=== PATIENT | female | born 1935 | race Caucasian/White ===

== ENCOUNTER 2019-10-06 13:17 | Outpatient (CLI) | payer OTHER, SELFPAY ==
--- NOTE | ~2019-10-06 | CT_ITS ---
EXAMINATION: CT abdomen pelvis w con DATE: 10/06/2019 15:24 INDICATION: Malignant neoplasm of the endometrium. TECHNIQUE: Computed tomography (CT) of the abdomen and pelvis was performed with 100 mL Omnipaque 350 intravenous contrast. Automated exposure control and iterative reconstruction technique were employe d. The dose-length product was 185.72 mGy-cm. COMPARISON: CT abdomen and pelvis 03/31/2019 FINDINGS: The visualized portions of the lung bases demonstrate mild atelectasis. There is bronchiect asis in right middle lobe and lingula. No pleural effusion. The heart size is normal. No pericardial effusion. There is mild intrahepatic bile duct dilatation, likely secondary to cholecystectomy. The s pleen, pancreas, and adrenal glands are normal. There are cysts in the kidneys measuring up to 4.6 cm on the left. There are no dilated loops of bowel. There are no pathologically enlarged lymph nodes. There is trace pelvic ascites. There is severe lumbar spondylosis. IMPRESSION: 1. No evidence of metastatic disease. Reviewed, dictated and finalized at location A.
[2019-10-06 15:16] LABS: Estimated Glomerular Filt Rate 60
== END 2019-10-06 13:18 | disposition home or self-care (01) ==
PROVIDERS: Visit Provider Radiology Radiation Oncology
DX: C54.1 Malignant neoplasm of endometrium (principal)
CPT/HCPCS: 36415; 74177; Q9967

== ENCOUNTER 2020-03-27 09:01 | Outpatient (CLI) | payer OTHER, SELFPAY ==
--- NOTE | ~2020-03-27 | CT_ITS ---
EXAMINATION: CT abdomen pelvis w con DATE: 03/27/2020 09:38 INDICATION: Malignant neoplasm of the endometrium TECHNIQUE: Computed tomography (CT) of the abdomen and pelvis was performed with 100 cc Omnipaque 350 intravenous contrast. The dose-length product was 250.84 mGy-cm. Automated exposure control and iter ative reconstruction technique were employed. COMPARISON: Comparison to multiple prior studies sequentially, with oldest reviewed study dated 09/11. FINDINGS: There is a new 6 mm lingular nodule, image 1, not present on CT dated 09/11/2018. Heart size normal. No significant pleural or pericardial effusion. Gallbladder is surgically absent with expected prominence of the bile ducts. There are bilateral susan l cysts unchanged. The spleen, pancreas, adrenal glands are unremarkable. Nonobstructive bowel gas pa ttern. There is free fluid in the pelvis. Uterus is surgically absent. There is a urachal remnant of the bladder. Moderate lumbar spondylosis. No free air. No lymphadenopathy. No significant vascular ab normality. IMPRESSION: 1. New 6 mm lingular nodule, not seen on CT dated 09/11/2018. Metastatic disease cannot be excluded. C onsider correlation with CT chest to exclude additional nodules. 2: Small amount of free fluid in the pelvis, nonspecific. Reviewed, dictated and finalized at location B. DCARE CENTER ADMINISTRATOR IMPRESSION: 1. New 6 mm lingular nodule, not seen on CT dated 09/11/2018. Metastatic disease cannot be excluded. Consider correlation with CT chest to exclude additional n odules. 2: Small amount of free fluid in the pelvis, nonspecific.
[2020-03-27 09:34] LABS: Estimated Glomerular Filt Rate > 60
== END 2020-03-27 09:02 | disposition home or self-care (01) ==
PROVIDERS: PCP Internal Medicine; Visit Provider Radiology Radiation Oncology
DX: C54.1 Malignant neoplasm of endometrium (principal); R93.5 Abnormal findings on diagnostic imaging of other abdominal regions, including retroperitoneum
CPT/HCPCS: 74177; Q9967

== ENCOUNTER 2020-04-04 09:49 | Outpatient (CLI) | payer OTHER, SELFPAY ==
--- NOTE | ~2020-04-04 | MR_ITS ---
EXAMINATION: MR brain/brain stem wo con DATE: 04/04/2020 10:34 INDICATION: Memory loss. Aphasia. TECHNIQUE: Magnetic resonance imaging (MRI) of the brain and brainstem was performed without intraven ous contrast. Sequences included sagittal and axial T1-weighted FSE, axial diffusion-weighted FS EPI, axial T2*-weighted GRE, axial T2-weighted FLAIR Propeller, and axial T2-weighted Propeller. Apparent diffusion coefficient (ADC) maps were created. COMPARISON: None. FINDINGS: There is no intracranial hemorrhage, acute infarction, or abnormal intracranial mass lesion . There is an old infarct in left frontal lobe. There are scattered areas of nonspecific increased T2 -weighted signal intensity in the cerebral white matter. The ventricles are normal in size. There is mild mucosal thickening in the ethmoid sinuses. The orbits are normal. The mastoid air cells are norm al. IMPRESSION: 1. 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 2. Moderate nonspecific cerebral white matter disease, which likely represents chronic small vessel i schemic disease. Reviewed, dictated and finalized at location B. RMATION RESOURCE CONSULTANT IMPRESSION: 1. 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 2. Moderate nonspecific cerebral white matter disease, which likely represents chronic small vessel ischemic disease.
== END 2020-04-04 09:50 | disposition home or self-care (01) ==
LOC: ANHIMG 09:50
PROVIDERS: PCP Internal Medicine; Visit Provider Internal Medicine
DX: R41.3 Other amnesia (principal); R47.01 Aphasia; R90.82 White matter disease, unspecified; Z86.73 Personal history of transient ischemic attack (TIA), and cerebral infarction without residual deficits
CPT/HCPCS: 70551

== ENCOUNTER 2020-04-11 09:40 | Outpatient (CLI) | payer OTHER, SELFPAY | END 2020-04-11 09:41 | disposition home or self-care (01) | LOC: ANHAUDIO 09:41 | PROVIDERS: PCP Internal Medicine; Visit Provider Internal Medicine | DX: H91.90 Unspecified hearing loss, unspecified ear (principal) | CPT/HCPCS: 99199 ==

== ENCOUNTER 2020-04-13 12:09 | Outpatient (CLI) | payer OTHER, SELFPAY ==
--- NOTE | ~2020-04-13 | CT_ITS ---
EXAMINATION: CT chest wo con EXAM DATE: 04/13/2020 13:26 INDICATION: Solitary pulmonary nodule. TECHNIQUE: Spiral CT of the chest without contrast. Axial, coronal and sagittal images were reviewe d. Coronal maximum intensity pixel images of chest reviewed. The dose-length product (DLP) for this examination was 64.05 mGy-cm. The exposure was tailored according to patient size (auto mA exposure control), and iterative reconstruction (ASIR) was used as additional dose reduction technique. Roland rison is made to prior examination from 01/18/2019. FINDINGS: There is interval development of a lingular nodule measuring 1.2 cm with slight lobulation but without spiculation. Interval development of 4 mm nodule in the left upper lobe on image #50. Sm all amount of lingular and right middle lobe post infectious residua unchanged compared to prior stud y. There is mild emphysema and hyperinflation. Some small regions of chronic tree-in-bud punctate nod ular opacities, indicating likelihood of chronic or prior endobronchial infectious process. Mild bron chiectasis. There are no pleural or pericardial effusions. Tracheobronchial tree is patent. There is no media stinal, hilar or axillary lymphadenopathy. There is no pneumothorax. Heart normal in size. Ther e is mild coronary arterial calcification, arterial sclerosis. Probable poorly calcified cholelithia sis. There is thoracic spondylosis without osteoblastic or osteolytic lesions identified. IMPRESSION: 1. Two new left lung nodules, largest 1.2 cm, possible metastatic disease or primary lung cancer. Op tions include CT guided lung biopsy, PET/CT. 2. Mild emphysema and hyperinflation. 3. Other chronic findings. Reviewed, dictated and finalized at location G. SCHOOL MANAGER IMPRESSION: 1. Two new left lung nodules, largest 1.2 cm, possible metastatic disease or p rimary lung cancer. Options include CT guided lung biopsy, PET/CT. 2. Mild emphysema and hyperinflation. 3. Other chronic findings.
== END 2020-04-13 12:10 | disposition home or self-care (01) ==
PROVIDERS: PCP Internal Medicine; Visit Provider Radiology Radiation Oncology
DX: R91.1 Solitary pulmonary nodule (principal); J43.9 Emphysema, unspecified; R91.8 Other nonspecific abnormal finding of lung field
CPT/HCPCS: 71250

== ENCOUNTER 2020-04-19 09:07 | Outpatient (CLI) | payer OTHER, SELFPAY ==
--- NOTE | ~2020-04-19 | PE_ITS ---
EXAMINATION: PET skull to mid thigh DATE: 04/19/2020 11:15 INDICATION: Solitary pulmonary nodule, history of endometrial cancer TECHNIQUE: Blood glucose level was 76 mg/dL. 8.88 mCi of 18-fluorodeoxyglucose (18-FDG) was administe red i.v. Low dose computed tomography (CT) images were acquired from the base of the brain to the pro ximal thighs for attenuation correction and anatomic localization. Positron emission tomography (PET) images were acquired in the same distribution beginning 57 minutes after injection. The dose-length product (DLP) was 318.37 mGy-cm. COMPARISON: 04/13/2020, 01/18/2019 FINDINGS: Head/neck: No abnormal FDG uptake is identified. FDG uptake in the oral cavity and vocal cords is lik zayda physiologic. Chest: There is a 1.3 x 1.0 cm left upper lobe nodule with abnormal FDG uptake and SUV max of 6.5. A 4 mm nodule in the medial aspect of the left upper lobe is unchanged in size and without definite FDG uptake. There is mild dependent atelectasis. No pleural effusion or pneumothorax is identified. No p athologically enlarged thoracic lymph nodes are identified. The heart size is normal. Abdomen/pelvis/proximal thighs: No abnormal FDG uptake is identified. Physiologic FDG activity is pre sent in the bowel and urinary tract. The liver, spleen, pancreas, and adrenal glands are normal. The gallbladder is surgically absent. There is mild enlargement of the common bile duct and central intra hepatic ducts which is likely due to post cholecystectomy state. Cysts of the kidneys measure up to 4 .4 cm on the left. There is no free intraperitoneal gas or evidence of bowel obstruction. There is ca lcified atherosclerosis of the aorta and many of the other arteries. No pathologically enlarged abdom inal or pelvic lymph nodes are identified. There are changes of hysterectomy. Musculoskeletal: No abnormal FDG uptake is identified. There is severe cervical spondylosis at C5-6. Mild lumbar spondylosis is noted. IMPRESSION: 1. Left upper lobe nodule with abnormal FDG uptake, consistent with metastatic disease versus primary bronchogenic carcinoma. Consider CT-guided biopsy for further evaluation. 2. Smaller 4 mm left upper lobe nodule does not demonstrate FDG uptake although this could be due to its small size and the nodule remains suspicious. Attention on follow-up examinations is recommended. Reviewed, dictated and finalized at location A. TICAL NURSING FACULTY IMPRESSION: 1. Left upper lobe nodule with abnormal FDG uptake, consistent with metastatic disease versus primary bronchogenic carcinoma. Consider CT-guided biopsy for fu rther evaluation. 2. Smaller 4 mm left upper lobe nodule does not demonstrate FDG uptake although this could be due to its small size and the nodule remains suspicious. Attenti on on follow-up examinations is recommended.
[2020-04-19 09:48] LABS: Glucose Point of Care 76 (65-105)
== END 2020-04-19 09:08 | disposition home or self-care (01) ==
LOC: ANHIMG 09:10
PROVIDERS: PCP Internal Medicine; Visit Provider Radiology Radiation Oncology
DX: C54.1 Malignant neoplasm of endometrium (principal); R91.1 Solitary pulmonary nodule; R91.8 Other nonspecific abnormal finding of lung field
CPT/HCPCS: 78815; A9552

== ENCOUNTER 2020-05-18 11:05 | Outpatient (NON) | payer OTHER, SELFPAY ==
[2020-05-18 21:44] LABS: SARS-CoV-2 RNA PCR Negative
== END 2020-05-18 11:06 ==
PROVIDERS: PCP Internal Medicine; Visit Provider Radiology Radiation Oncology
DX: R43.2 Parageusia (principal); Z20.822 Contact with and (suspected) exposure to COVID-19
CPT/HCPCS: C9803; U0003; U0005

== ENCOUNTER 2020-09-11 13:34 | Outpatient (CLI) | payer OTHER, SELFPAY ==
--- NOTE | ~2020-09-11 | CT_ITS ---
EXAMINATION: CT chest high resolution w con EXAM DATE: 09/11/2020 14:31 INDICATION: C34.12 - Malignant neoplasm of upper lobe, left bronchus or lung. TECHNIQUE: Spiral CT of the chest following intravenous injection of 75 mL Omnipaque 350. Axial, cor onal and sagittal images of the chest were reviewed. Coronal maximum intensity pixel images of chest reviewed. The dose-length product (DLP) for this examination was 113.69 mGy-cm. The exposure was t ailored according to patient size (auto mA exposure control), and iterative reconstruction (ASIR) was used as additional dose reduction technique. Comparison is made to prior examination from 04/13/2020 . Correlation was made with PET/CT 04/19/2020. FINDINGS: Previously described 1.2 cm pleural-based left midlung zone lateral nodule has decreased i n size, now measuring 7 mm in diameter (axial image 63). This nodule didn't demonstrate increased FDG activity. Previously described left upper lobe 4 mm nodule has increased in size, now measures 9 mm in diameter (axial image 48). These are suspicious for Interval development of some lingular scarring or atelectasis. Persistent right middle lobe atelectasis. Interval development of opacity in the pos terior sulcus of the left lower lobe most likely atelectasis. Mild bronchiectasis. There are no pleural or pericardial effusions. Tracheobronchial tree is patent. There is no media stinal, hilar or axillary lymphadenopathy. There is no pneumothorax. Heart normal in size. Ther e is mild to moderate coronary arterial calcification, arterial sclerosis. There is thoracic spondyl osis without osteoblastic or osteolytic lesions identified. IMPRESSION: 1. Interval decrease in size of previously identified larger left midlung pleural-based nodule. 2. Interval increase in size of the other newly developed left upper lobe nodule. 3. Mild emphysema and hyperinflation. 4. Other chronic findings. Reviewed, dictated and finalized at location A. IMPRESSION: 1. Interval decrease in size of previously identified larger left midlung pleu ral-based nodule. 2. Interval increase in size of the other newly developed left upper lobe nodu le. 3. Mild emphysema and hyperinflation. 4. Other chronic findings.
[2020-09-11 14:17] LABS: Estimated Glomerular Filt Rate > 60
== END 2020-09-11 13:35 | disposition home or self-care (01) ==
PROVIDERS: PCP Internal Medicine; Visit Provider Radiology Radiation Oncology
DX: C34.12 Malignant neoplasm of upper lobe, left bronchus or lung (principal); R91.8 Other nonspecific abnormal finding of lung field; J43.9 Emphysema, unspecified
CPT/HCPCS: 71260; Q9967

== ENCOUNTER 2020-10-05 10:24 | Outpatient (CLI) | payer OTHER, SELFPAY ==
--- NOTE | ~2020-10-05 | PE_ITS ---
EXAMINATION: PET skull to mid thigh DATE: 10/05/2020 14:25 INDICATION: Malignant neoplasm of upper lobe, left bronchus or lung. TECHNIQUE: Blood glucose level was 98 mg/dL. 11.844 mCi of 18-fluorodeoxyglucose (18-FDG) was adminis tered i.v. Low dose computed tomography (CT) images were acquired from the base of the brain to the p roximal thighs for attenuation correction and anatomic localization. Automated exposure control was e mployed. Dose-length product (DLP) was 327 mGy-cm. Positron emission tomography (PET) images were acq uired in the same distribution. COMPARISON: Chest CT 09/11/2020, 04/13/20, PET CT 04/19/2020 FINDINGS: Head/neck: There are no pathologically enlarged lymph nodes. Chest: There is mild scarring at the lung apices. A calcified right lung nodule and calcified right h ilar lymph nodes are consistent with old granulomatous disease. There is mild atelectasis and scarrin g in the lungs. There are chronic centrilobular nodules in the inferior lungs, increased activity, co nsistent with chronic infection. There is a 6 mm nodule in lingula with maximum SUV of 1.8, decreased from 12 mm on 04/13/20. There is a 10 mm nodule in anterior segment left upper lobe with maximum SUV of 6.6, increased from 5 mm on 04/13/20. There is a 7 mm nodule in right middle lobe without increas ed activity, increased from 4 mm on 04/13/20. No pleural effusion. The heart size is normal. There ar e coronary artery calcifications. There are calcifications of aortic valve. No pericardial effusion. Abdomen/pelvis/proximal thighs: The liver, spleen, pancreas, adrenal glands are normal. The gallbladd er is absent. Right kidney is normal. There are cysts in left kidney measuring up to 4.3 cm. There ar e no dilated loops of bowel. There is trace ascites. There are no pathologically enlarged lymph nodes . There are insufficiency fractures of right superior and inferior pubic rami, right parasymphyseal p ubis, and right sacral ala. IMPRESSION: 1. Improved pulmonary nodule in lingula status post radiation therapy. Worsened nodules in left upper lobe and right middle lobe. These findings are suspicious for metastatic disease. Reviewed, dictated and finalized at location A. IMPRESSION: 1. Improved pulmonary nodule in lingula status post radiation therapy. Worsened nodules in left upper lobe and right middle lobe. These findings are suspiciou s for metastatic disease.
[2020-10-05 12:16] LABS: Glucose Point of Care 90 mg/dl (65-105)
== END 2020-10-05 10:25 | disposition home or self-care (01) ==
PROVIDERS: PCP Internal Medicine; Visit Provider Radiology Radiation Oncology
DX: Z03.89 Encounter for observation for other suspected diseases and conditions ruled out (principal); C34.12 Malignant neoplasm of upper lobe, left bronchus or lung; Z51.81 Encounter for therapeutic drug level monitoring; Z79.899 Other long term (current) drug therapy
CPT/HCPCS: 78815; 82948; A9552

== ENCOUNTER 2020-10-17 12:55 | Outpatient (CLI) | payer OTHER, SELFPAY ==
[2020-10-17 13:39] LABS: Basophils Absolute Auto 0.1 K/mm3 (0.0-0.1); Basophils Percent Auto 0.9 % (0.2-1.2); Eosinophils Absolute Auto 0.1 K/mm3 (0-0.3); Eosinophils Percent Auto 1.4 % (0-4.4); Hemoglobin 11.3 g/dL (12.0-15.0); Immature Granulocyte Absolute 0.01 K/mm3 (0.00-0.031); Immature Granulocyte Percent A 0.2 % (0-0.5); Lymphocytes Absolute Auto 0.66 K/mm3 (0.9-3.2); Lymphocytes Percent Auto 10.2 % (18.3-44.2); Mean Corpuscular HGB Conc 30.5 g/dl (32-36); Mean Corpuscular Hemoglobin 26.7 pg (26-34); Mean Corpuscular Volume 87.5 fl (80-100); Mean Platelet Volume 8.5 fl (7.4-10.4); Monocytes Absolute Auto 0.5 K/mm3 (0.1-0.6); Monocytes Percent Auto 8.1 % (2.6-8.5); Neutrophils Absolute Auto 5.1 K/mm3 (1.3-6.7); Neutrophils Percent Auto 79.2 % (45.5-73.1); Platelet Count Result 352 k/mm3 (150-375); Red Blood Count 4.23 M/mm3 (4.2-5.4); Red Cell Distribution Width 13.6 % (11.5-14.5); White Blood Count 6.5 K/mm3 (4.5-10.0)
[2020-10-17 17:34] LABS: Alanine Aminotransferase 10 U/L (4-35); Albumin Level 4.1 g/dL (3.5-5.1); Alkaline Phosphatase 61 U/L (38-126); Anion Gap 11 mmol/L (8-16); Aspartate Amino Transferase 23 U/L (14-36); Bilirubin,Total 0.2 mg/dL (0.2-1.3); Blood Urea Nitrogen 15 mg/dL (7-17); Calcium 10.8 mg/dL (8.4-10.2); Carbon Dioxide 22 mmol/L (22-30); Chloride 105 mmol/L (98-107); Estimated Glomerular Filt Rate > 60; Glucose 78 mg/dL (65-105); Potassium 4.1 mmol/L (3.4-5.0); Sodium 138 mmol/L (137-145)
[2020-10-21 04:12] LABS: CA-125 65 U/mL (<35)
== END 2020-10-17 12:56 | disposition home or self-care (01) ==
LOC: ANHLAB 13:02
PROVIDERS: PCP Internal Medicine; Visit Provider Internal Medicine Hematology & Oncology
DX: C54.1 Malignant neoplasm of endometrium (principal)
CPT/HCPCS: 36415; 80053; 85025; 86304

== ENCOUNTER 2020-10-20 09:58 | Outpatient (NON) | payer OTHER, SELFPAY | END 2020-10-20 09:59 | disposition home or self-care (01) | PROVIDERS: PCP Internal Medicine; Visit Provider Internal Medicine Hematology & Oncology | DX: C54.1 Malignant neoplasm of endometrium (principal) | CPT/HCPCS: 88342; 88365 ==

== ENCOUNTER 2020-12-25 13:50 | Outpatient (CLI) | payer OTHER, SELFPAY ==
[2020-12-25 14:20] LABS: Basophils Absolute Auto 0.1 K/mm3 (0.0-0.1); Basophils Percent Auto 1.3 % (0.2-1.2); Eosinophils Absolute Auto 0.4 K/mm3 (0-0.3); Hematocrit 36.4 % (37.0-47.0); Immature Granulocyte Absolute 0.02 K/mm3 (0.00-0.031); Immature Granulocyte Percent A 0.4 % (0-0.5); Immature Platelet Fraction Pct 1.8 % (0.9-11.2); Lymphocytes Absolute Auto 0.34 K/mm3 (0.9-3.2); Lymphocytes Percent Auto 6.3 % (18.3-44.2); Mean Corpuscular HGB Conc 30.2 g/dl (32-36); Mean Corpuscular Hemoglobin 27.2 pg (26-34); Mean Corpuscular Volume 90.1 fl (80-100); Mean Platelet Volume 9.9 fl (7.4-10.4); Monocytes Absolute Auto 0.6 K/mm3 (0.1-0.6); Monocytes Percent Auto 10.7 % (2.6-8.5); Neutrophils Percent Auto 74.3 % (45.5-73.1); Platelet Count Result 254 k/mm3 (150-375); Red Blood Count 4.04 M/mm3 (4.2-5.4); Red Cell Distribution Width 14.5 % (11.5-14.5); White Blood Count 5.4 K/mm3 (4.5-10.0)
[2020-12-25 14:37] LABS: Blood Urea Nitrogen 16 mg/dL (8-26); Carbon Dioxide 21 mmol/L (22-30); Chloride 102 mmol/L (98-109); Estimated Glomerular Filt Rate 53; Glucose 80 mg/dL (70-105); Potassium 3.8 mmol/L (3.5-4.9); Sodium 136 mmol/L (138-146)
[2020-12-25 17:41] LABS: Alanine Aminotransferase 11 U/L (4-35); Albumin Level 3.9 g/dL (3.5-5.1); Alkaline Phosphatase 55 U/L (38-126); Anion Gap 9 mmol/L (8-16); Aspartate Amino Transferase 23 U/L (14-36); Bilirubin,Total 0.5 mg/dL (0.2-1.3); Blood Urea Nitrogen 18 mg/dL (7-17); Calcium 10.4 mg/dL (8.4-10.2); Carbon Dioxide 22 mmol/L (22-30); Chloride 104 mmol/L (98-107); Estimated Glomerular Filt Rate 60; Glucose 83 mg/dL (65-110); Sodium 135 mmol/L (137-145)
[2020-12-27 02:29] LABS: CA-125 45 U/mL (<35)
== END 2020-12-25 13:51 | disposition home or self-care (01) ==
LOC: ANHLAB 13:54
PROVIDERS: PCP Internal Medicine; Visit Provider Internal Medicine Hematology & Oncology
DX: C54.1 Malignant neoplasm of endometrium (principal)
CPT/HCPCS: 36415; 80048; 80053; 85025; 85055; 86304

== ENCOUNTER 2021-03-30 13:12 | Inpatient (IN) | payer OTHER, SELFPAY ==
--- NOTE | 2021-03-30 14:56 | PM.IMHP ---
H&P: HPI History of Present Illness Date/Time: 03/30/21 14:56 this is a 85-year-old female who presented to [facility] after a mechanical fall. Patient sustained a subdural hematoma and a T12 compression fracture. Upon discharge it was recommended that the patient Eliquis stay on until she follows up with a neurosurgeon she was also placed on Keppra for a short period of time for seizure prevention. Patient does have a history of dementia and a poor historian all information obtained from medical records or her in order. Patient admitted in swing bed for rehabilitation due to decreased balance decreased mobility in severe limited function endurant and/or mobility. <BUD Mccain - Last Filed: 03/31/21 13:14> Chief Complaint: weakness <BUD Mccain - Last Filed: 03/31/21 13:14> Review of Systems Review of Systems: ROS unobtainable: Yes unobtainable due to mental status <BUD Mccain - Last Filed: 03/31/21 13:14> [facility] Past Medical History Medical History: Medical History CKD (chronic kidney disease) COPD (chronic obstructive pulmonary disease) CPAP (continuous positive airway pressure) dependence Dementia FH: cholecystectomy GERD (gastroesophageal reflux disease) Hip fracture requiring operative repair r hip 02/14/21 l hip 02/08/2021 Irritable bowel syndrome Lupus <BUD Mccain - Last Filed: 03/31/21 13:14> Surgical History Surgical History: Surgical History H/O abdominal hysterectomy <BUD Mccain - Last Filed: 03/31/21 13:14> Social History Social History: Social History Smoking status: Never smoker Second hand tobacco smoke exposure: Yes Alcohol intake: never Substance use: never Spiritual care concerns: No <BUD Mccain - Last Filed: 03/31/21 13:14> Meds Home Medications and Allergies Home medications: Home Medications Medication Instructions Recorded Confirmed Type acetaminophen 650 mg PO Q4-6H PRN 02/18/19 03/30/21 History cetirizine 10 mg PO DAILY 02/18/19 03/30/21 History fenofibrate nanocrystallized 48 mg PO HS 02/18/19 03/30/21 History lisinopril [Zestril] 40 mg PO DAILY 02/18/19 03/30/21 History omeprazole 40 mg PO BID 02/18/19 03/30/21 History spironolactone 25 mg PO DAILY 02/18/19 03/30/21 History alendronate 70 mg PO WEEKLY 03/30/21 03/30/21 History amlodipine 5 mg PO DAILY 03/30/21 03/30/21 History calcium carbonate 200 mg PO QID PRN 03/30/21 03/30/21 History duloxetine 30 mg PO BID 03/30/21 03/30/21 History ferrous sulfate 325 mg PO DAILY 03/30/21 03/30/21 History hydroxychloroquine [Plaquenil] 200 mg PO DAILY 03/30/21 03/30/21 History hydroxyzine HCl 10 mg PO BID PRN 03/30/21 03/30/21 History levetiracetam 500 mg PO BID 03/30/21 03/30/21 History loratadine 10 mg PO DAILY 03/30/21 03/30/21 History metoprolol tartrate 12.5 mg PO BID 03/30/21 03/30/21 History metronidazole 1 applic TOPICAL BID 03/30/21 03/30/21 History polyethylene glycol 3350 [Miralax] 17 g PO DAILY 03/30/21 03/30/21 History potassium phosphate, monobasic 500 mg PO TIDWM 03/30/21 03/30/21 History ramelteon 8 mg PO HS 03/30/21 03/30/21 History sodium chloride 1 g PO BIDWM 03/30/21 03/30/21 History sulfamethoxazole-trimethoprim 1 tablet PO Q12H 03/30/21 03/30/21 History [Bactrim DS] tamoxifen 20 mg PO DAILY 03/30/21 03/30/21 History trazodone 50 mg PO HS 03/30/21 03/30/21 History BUD Butler - Last Filed: 03/31/21 13:14> Allergies/Adverse reactions: Allergies Allergy/AdvReac Type Severity Reaction Status Date / Time levofloxacin Allergy Severe RASH, N/V Verified 11/24/20 10:45 albuterol Allergy Intermediate n/a Verified 11/24/20 10:45 <BUD Mccain - Last Filed: 03/31/21 13:14> Exam Narrative:
[2021-03-30 16:00] VITALS: BP 146/85; PULSE 73; RESP 20; TEMP 36.6; O2SAT 100
[2021-03-30 16:37] VITALS: BMI 18.0
[2021-03-30] MEDS: POTASSIUM/PHOSPHORUS/SODIUM 1.5 GM PACKET 1 PACKET PO (17:25)
[2021-03-30 17:28] VITALS: PULSE 73
[2021-03-30] MEDS: DULoxetine HCL 30 MG CAPSULE.DR PO (17:28)
[2021-03-30] MEDS: METOPROLOL TARTRATE 12.5 MG TABLET PO (17:28)
[2021-03-30] MEDS: hydrOXYzine HCL 12.5 MG TABLET PO (18:03)
--- NOTE | 2021-03-30 19:00 | PC.NURSE ---
Pt introduction took place. Pt whiteboard updated. Call light within reach.
[2021-03-30] MEDS: PANTOPRAZOLE 40 MG TABLET PO (21:15)
[2021-03-30] MEDS: levETIRAcetam 500 MG TABLET PO (21:15)
[2021-03-30] MEDS: traZODone HCL 50 MG TABLET PO (21:16)
[2021-03-30] MEDS: ZOLPIDEM TARTRATE (*CRX) 5 MG TABLET PO (21:16)
--- NOTE | 2021-03-30 22:29 | PM.IMHP ---
H&P: HPI History of Present Illness Date/Time: 03/30/21 22:29 Chief Complaint: 85-year-old female with a history of dementia, hypertension, HFpEF, COPD, [place] on CPAP, CKD, lupus, rheumatoid arthritis, endometrial cancer with Mets to the lung status post RT, recurrent falls with bilateral hip fractures status post repair of the left on 02/08/2021 and of the right on 02/14/2021, chief T12 compression fracture was transferred to [facility] on 03/24/2021 with -- subdural hematoma -- right frontal and periorbital hematoma -- T12 compression fracture The patient had a fall and sustained bilateral hip fractures which were repaired on 02/08/2021 and 02/14/2021. Postoperatively the patient was started on Eliquis for DVT prophylaxis. The patient was monitored for the subdural hematoma. The patient was also started on Keppra. During the hospitalization the patient developed -- E coli urinary tract infection/ E coli bacteremia The patient is transferred to the swing bed service is here. Review of Systems Review of Systems: The patient has dementia and is unable to answer questions appropriately. [facility] Past Medical History Medical History CKD (chronic kidney disease) COPD (chronic obstructive pulmonary disease) CPAP (continuous positive airway pressure) dependence Dementia FH: cholecystectomy GERD (gastroesophageal reflux disease) Hip fracture requiring operative repair r hip 02/14/21 l hip 02/08/2021 Irritable bowel syndrome Lupus Surgical History Surgical History H/O abdominal hysterectomy Social History Social History Smoking status: Never smoker Second hand tobacco smoke exposure: Yes Alcohol intake: never Substance use: never Spiritual care concerns: No Meds Home Medications and Allergies Home Medications Medication Instructions Recorded Confirmed Type acetaminophen 650 mg PO Q4-6H PRN 02/18/19 03/30/21 History cetirizine 10 mg PO DAILY 02/18/19 03/30/21 History fenofibrate nanocrystallized 48 mg PO HS 02/18/19 03/30/21 History lisinopril [Zestril] 40 mg PO DAILY 02/18/19 03/30/21 History omeprazole 40 mg PO BID 02/18/19 03/30/21 History spironolactone 25 mg PO DAILY 02/18/19 03/30/21 History alendronate 70 mg PO WEEKLY 03/30/21 03/30/21 History amlodipine 5 mg PO DAILY 03/30/21 03/30/21 History calcium carbonate 200 mg PO QID PRN 03/30/21 03/30/21 History duloxetine 30 mg PO BID 03/30/21 03/30/21 History ferrous sulfate 325 mg PO DAILY 03/30/21 03/30/21 History hydroxychloroquine [Plaquenil] 200 mg PO DAILY 03/30/21 03/30/21 History hydroxyzine HCl 10 mg PO BID PRN 03/30/21 03/30/21 History levetiracetam 500 mg PO BID 03/30/21 03/30/21 History loratadine 10 mg PO DAILY 03/30/21 03/30/21 History metoprolol tartrate 12.5 mg PO BID 03/30/21 03/30/21 History metronidazole 1 applic TOPICAL BID 03/30/21 03/30/21 History polyethylene glycol 3350 [Miralax] 17 g PO DAILY 03/30/21 03/30/21 History potassium phosphate, monobasic 500 mg PO TIDWM 03/30/21 03/30/21 History ramelteon 8 mg PO HS 03/30/21 03/30/21 History sodium chloride 1 g PO BIDWM 03/30/21 03/30/21 History sulfamethoxazole-trimethoprim 1 tablet PO Q12H 03/30/21 03/30/21 History [Bactrim DS] tamoxifen 20 mg PO DAILY 03/30/21 03/30/21 History trazodone 50 mg PO HS 03/30/21 03/30/21 History Allergies Allergy/AdvReac Type Severity Reaction Status Date / Time levofloxacin Allergy Severe RASH, N/V Verified 11/24/20 10:45 albuterol Allergy Intermediate n/a Verified 11/24/20 10:45 Vital Signs Vital Signs - 24 hr 03/30/21 16:00 03/30/21 17:28 Temperature 36.6 C Pulse Rate 73 73 Respiratory Rate 20 Blood Pressure 146/85 H Pulse Oximetry 100 Exam Const: General: cooperative, no acute distress and ill appearing Nutritional Appearance: cachec
[2021-03-31] VITALS: BP 107/56; PULSE 72; RESP 22; TEMP 36.9; O2SAT 95
--- NOTE | 2021-03-31 02:11 | PC.NURSE ---
Pt rounding completed. Pt tolerated turning with no complaints. Call light is within reach and bed alarm is on.
[2021-03-31 05:34] LABS: Hematocrit 28.2 % (35.0-42.0); Hemoglobin 9.2 g/dL (11.7-13.8); Mean Corpuscular HGB Conc 32.6 g/dL (32.0-36.0); Mean Corpuscular Hemoglobin 30.3 pg (27.0-31.0); Mean Corpuscular Volume 92.8 fL (78.0-102.0); Mean Platelet Volume 8.8 fl (9.2-11.8); Platelet Count Result 375 K/mm3 (150-420); Red Blood Count 3.04 M/mm3 (4.20-5.40); Red Cell Distribution Width 15.9 % (11.6-14.4); White Blood Count 6.2 K/mm3 (4.8-10.8)
[2021-03-31 05:44] LABS: Alanine Aminotransferase 14 U/L (14-59); Albumin Level 2.4 g/dL (3.4-5.0); Alkaline Phosphatase 65 U/L (46-116); Anion Gap 8 mmol/L (8-16); Aspartate Amino Transferase 14 U/L (15-37); Bilirubin,Total 0.3 mg/dL (0.00-1.00); Blood Urea Nitrogen 12 mg/dL (7-18); Carbon Dioxide 24 mmol/L (21-32); Chloride 107 mmol/L (98-108); Estimated CRCL calculation 36 ml/min; Estimated Glomerular Filt Rate > 60; Glucose 86 mg/dL (70-99); Magnesium 1.8 mg/dL (1.8-2.4); Osmolality Calculated 286 mOsm/kg (285-295); Potassium 4.2 mmol/L (3.5-5.1); Sodium 139 mmol/L (136-145); Total Protein 5.4 g/dL (6.4-8.2)
[2021-03-31 08:00] VITALS: BP 135/83; PULSE 76; RESP 17; TEMP 36.2; O2SAT 99
--- NOTE | 2021-03-31 10:26 | STIPEVAL ---
Thank you for referring Gisela Mendiola to [facility].? The patient is scheduled to be seen for therapy? 5-7x/week for 2 weeks. Please review, sign, date and return this plan of care BIGG. I agree with and certify that the following plan of care is medically necessary. Referring Physician Date Admitting Provider: Miguel Chi MD Attending Provider: Miguel Chi MD Referring Provider: CHAD Inpatient Evaluation Start: 03/31/21 10:09 Freq: Status: Active Protocol: Document 03/31/21 09:30 MJB (Rec: 03/31/21 10:25 [id number]) Therapy Assessment Status Assessment Status Assessment Status Evaluation Prior Level of Function Activity Level (Last 3 Months) Occupation retired Activity of Daily Living Ability Independent Indoor/Home Mobility Independent Community Mobility Needs Some Help Stairs Ability Independent Functional Cognition (Planning, Shopping Needs Some Help , Taking Medications) Cooking No Cleaning No Laundry No Shopping No Driving No Home Setting Home Type House Environmental Barriers Stairs, Greater than 4 Living Situation With Spouse Support Available Local Family Support Cargiver Responsibilities Comment patient's and daughter are in the room and assist in providing prior level of function. Patient initially fell and broke her L hip on February 07 resulting in a full L hip replacement. She was transferred to a [facility] center where she had 3 additional falls resulting in partial hip replacement of the R hip and the last fall a brain bleed. Patient would occasionally use a cane but did not use correctly. Mobility Assistive Devices (Used Last 3 Cane Months) Prior Swallow Level Prior Intake Method Oral Prior Diet Regular (Level 7 Diet) Prior Liquid Consistency Thin (Level 0 Diet) Prior Cognition/Communication Prior Cognitive Function Memory Impaired,Orientation Impaired Prior Ability to Handle Finances Dependent Comments Additional Prior Level of Function Patient is a poor historian Comments therefore limited information was
--- NOTE | 2021-03-31 13:20 | PC.NURSE ---
Patient being discharged home. All belongings sent home with patient. Discharge instructions reviewed with patient family member, states understanding. This nurse accompanied patient to front door via wheelchair. Patient left via private vehicle with family member. Umm delivered portable 02 tank before patient discharged and did teaching with patient.
[2021-03-31] MEDS: POTASSIUM/PHOSPHORUS/SODIUM 1.5 GM PACKET 1 PACKET PO (13:52)
[2021-03-31] MEDS: lisinopriL 20 MG TABLET 40 MG PO (13:53)
[2021-03-31] MEDS: amLODIPine BESYLATE 5 MG TABLET PO (13:53)
[2021-03-31] MEDS: DULoxetine HCL 30 MG CAPSULE.DR PO ×2 (13:53→23:20)
[2021-03-31] MEDS: SPIRONOLACTONE 25 MG TABLET PO (13:54)
[2021-03-31] MEDS: levETIRAcetam 500 MG TABLET PO ×2 (13:54→23:00)
[2021-03-31] MEDS: HYDROXYCHLOROQUINE SULFATE 200 MG TABLET PO (13:54)
[2021-03-31 13:55] VITALS: PULSE 88
[2021-03-31] MEDS: METOPROLOL TARTRATE 12.5 MG TABLET PO ×2 (13:55→23:20)
[2021-03-31] MEDS: LORATADINE 10 MG TABLET PO (13:56)
[2021-03-31] MEDS: PANTOPRAZOLE 40 MG TABLET PO ×2 (13:59→23:00)
[2021-03-31] MEDS: FENOFIBRATE NANOCRYSTALLIZED 145 MG TABLET 72.5 MG PO (14:00)
[2021-03-31] MEDS: FERROUS SULFATE 324 MG TABLET PO (14:00)
[2021-03-31] MEDS: TAMOXIFEN CITRATE (*CHEMO) 10 MG TABLET 20 MG PO (14:01)
[2021-03-31 16:00] VITALS: BP 130/76; PULSE 70; RESP 17; TEMP 36.4; O2SAT 96
--- NOTE | 2021-03-31 18:41 | PC.NURSE ---
Pt whiteboard updated. Pt's is in room and both are in pleasant mood.
[2021-03-31] MEDS: hydrOXYzine HCL 12.5 MG TABLET PO (19:52)
[2021-03-31] MEDS: ZOLPIDEM TARTRATE (*CRX) 5 MG TABLET PO (23:00)
[2021-03-31] MEDS: traZODone HCL 50 MG TABLET PO (23:00)
[2021-03-31 23:20] VITALS: PULSE 86
[2021-03-31 23:26] VITALS: BP 129/73; PULSE 86; RESP 17; TEMP 36.8; O2SAT 97
--- NOTE | 2021-04-01 01:09 | PC.NURSE ---
Pt had voided in bed on accident. This senior technical writer along with [employer]. changed the bed linens, gown, and performed perianal care for the pt. Pt tolerated procedure well through her confusion. Bed was then placed in lowest position for pt safety and call light was placed within reach.
--- NOTE | 2021-04-01 01:27 | PC.NURSE ---
Pt currently sleeping on her back with her feet elevated with a pillow. Call light within reach.
--- NOTE | 2021-04-01 02:58 | PC.NURSE ---
Pt had voided while sleeping. Bed linens changed along with pt gown. Pt tolerated intervention well. Pericare provided. A depend was placed on the pt for any incontinence through the night. Bed was placed in lowest position for pt safety and 3 bed rails raised. Call light is within reach.
[2021-04-01 08:00] VITALS: BP 141/70; PULSE 83; RESP 16; TEMP 36.8; O2SAT 97
[2021-04-01] MEDS: FENOFIBRATE NANOCRYSTALLIZED 145 MG TABLET 72.5 MG PO (12:13)
[2021-04-01] MEDS: lisinopriL 20 MG TABLET 40 MG PO (12:14)
[2021-04-01] MEDS: amLODIPine BESYLATE 5 MG TABLET PO (12:15)
[2021-04-01] MEDS: LORATADINE 10 MG TABLET PO (12:15)
[2021-04-01] MEDS: PANTOPRAZOLE 40 MG TABLET PO ×2 (12:15→23:04)
[2021-04-01] MEDS: SPIRONOLACTONE 25 MG TABLET PO (12:15)
[2021-04-01] MEDS: FERROUS SULFATE 324 MG TABLET PO (12:15)
[2021-04-01] MEDS: polyethylene glycoL 3350 17 GM POWD.PACK PO (12:16)
[2021-04-01] MEDS: HYDROXYCHLOROQUINE SULFATE 200 MG TABLET PO (12:16)
[2021-04-01] MEDS: POTASSIUM/PHOSPHORUS/SODIUM 1.5 GM PACKET 1 PACKET PO (12:17)
[2021-04-01] MEDS: TAMOXIFEN CITRATE (*CHEMO) 10 MG TABLET 20 MG PO (12:17)
[2021-04-01 16:00] VITALS: BP 110/54; PULSE 64; RESP 16; TEMP 36.6; O2SAT 97
[2021-04-01 18:01] VITALS: PULSE 84
[2021-04-01] MEDS: METOPROLOL TARTRATE 12.5 MG TABLET PO (18:01)
[2021-04-01] MEDS: DULoxetine HCL 30 MG CAPSULE.DR PO (18:01)
[2021-04-01] MEDS: ACETAMINOPHEN 325 MG TABLET 650 MG PO (19:34)
--- NOTE | 2021-04-01 19:47 | PC.NURSE ---
Pt transferred to bedside commode with 2 assist and gait belt. Pt performed fairly. Pt had 1 incontinent void in depend, but did void clear, yellow urine. Pt then transferred to bed with 2 assist and gait belt; pt performed fair. Pillow placed under legs for support and to keep heels off the bed. Trash removed/replaced. Call light placed within reach and room lights dimmed.
[2021-04-01] MEDS: traZODone HCL 50 MG TABLET PO (23:04)
[2021-04-01] MEDS: ZOLPIDEM TARTRATE (*CRX) 5 MG TABLET PO (23:05)
[2021-04-02] VITALS: BP 108/57; PULSE 73; RESP 17; TEMP 36.9; O2SAT 96
[2021-04-02 08:00] VITALS: BP 117/57; PULSE 76; RESP 18; TEMP 36.6; O2SAT 96
--- NOTE | 2021-04-02 08:20 | PCOTNOTE ---
OT attempted to see patient for treatment this AM however patient is unable to achieve an alert state despite max cues. MS
[2021-04-02] MEDS: POTASSIUM/PHOSPHORUS/SODIUM 1.5 GM PACKET 1 PACKET PO ×2 (09:41→17:19)
[2021-04-02] MEDS: FENOFIBRATE NANOCRYSTALLIZED 145 MG TABLET 72.5 MG PO (09:42)
[2021-04-02] MEDS: TAMOXIFEN CITRATE (*CHEMO) 10 MG TABLET 20 MG PO (09:42)
[2021-04-02] MEDS: HYDROXYCHLOROQUINE SULFATE 200 MG TABLET PO (09:42)
[2021-04-02] MEDS: DULoxetine HCL 30 MG CAPSULE.DR PO ×2 (09:43→17:19)
[2021-04-02] MEDS: polyethylene glycoL 3350 17 GM POWD.PACK PO (09:43)
[2021-04-02] MEDS: lisinopriL 20 MG TABLET 40 MG PO (09:43)
[2021-04-02] MEDS: FERROUS SULFATE 324 MG TABLET PO (09:43)
[2021-04-02] MEDS: SPIRONOLACTONE 25 MG TABLET PO (09:43)
[2021-04-02] MEDS: LORATADINE 10 MG TABLET PO ×2 (09:43)
[2021-04-02] MEDS: PANTOPRAZOLE 40 MG TABLET PO ×2 (09:43→21:23)
[2021-04-02] MEDS: amLODIPine BESYLATE 5 MG TABLET PO (09:43)
[2021-04-02 09:44] VITALS: PULSE 70
[2021-04-02] MEDS: METOPROLOL TARTRATE 12.5 MG TABLET PO ×2 (09:44→17:20)
[2021-04-02 16:00] VITALS: BP 145/81; PULSE 75; RESP 16; TEMP 36.6; O2SAT 100
[2021-04-02 17:20] VITALS: PULSE 74
[2021-04-02] MEDS: traZODone HCL 50 MG TABLET PO (21:23)
[2021-04-02] MEDS: ZOLPIDEM TARTRATE (*CRX) 2.5 MG TABLET PO (22:04)
[2021-04-03] VITALS: BP 110/58; PULSE 70; RESP 14; TEMP 36.6; O2SAT 96
[2021-04-03 08:00] VITALS: BP 142/76; PULSE 98; RESP 20; TEMP 37.1; O2SAT 97
[2021-04-03] MEDS: FENOFIBRATE NANOCRYSTALLIZED 145 MG TABLET 72.5 MG PO (09:19)
[2021-04-03] MEDS: PANTOPRAZOLE 40 MG TABLET PO ×2 (09:19→20:05)
[2021-04-03] MEDS: HYDROXYCHLOROQUINE SULFATE 200 MG TABLET PO (09:19)
[2021-04-03] MEDS: LORATADINE 10 MG TABLET PO (09:19)
[2021-04-03] MEDS: FERROUS SULFATE 324 MG TABLET PO (09:21)
[2021-04-03] MEDS: lisinopriL 20 MG TABLET 40 MG PO (09:21)
[2021-04-03] MEDS: amLODIPine BESYLATE 5 MG TABLET PO (09:22)
[2021-04-03] MEDS: SPIRONOLACTONE 25 MG TABLET PO (09:23)
[2021-04-03] MEDS: DULoxetine HCL 30 MG CAPSULE.DR PO ×2 (09:23→16:35)
[2021-04-03 09:24] VITALS: PULSE 98
[2021-04-03] MEDS: METOPROLOL TARTRATE 12.5 MG TABLET PO ×2 (09:24→16:35)
[2021-04-03] MEDS: TAMOXIFEN CITRATE (*CHEMO) 10 MG TABLET 20 MG PO (09:25)
[2021-04-03] MEDS: POTASSIUM/PHOSPHORUS/SODIUM 1.5 GM PACKET 1 PACKET PO ×2 (09:26→16:34)
[2021-04-03] MEDS: polyethylene glycoL 3350 17 GM POWD.PACK PO (09:34)
[2021-04-03 16:00] VITALS: BP 118/69; PULSE 74; RESP 16; TEMP 37.1; O2SAT 100
[2021-04-03 16:35] VITALS: PULSE 74
--- NOTE | 2021-04-03 19:20 | PC.NURSE ---
pt is anxious/scared due to leaving early to attend a work meeting, bed alarm on, pt reminded he will be back in the morning, rails up, call light in reach
[2021-04-03] MEDS: traZODone HCL 50 MG TABLET PO (20:05)
[2021-04-03] MEDS: ZOLPIDEM TARTRATE (*CRX) 2.5 MG TABLET PO (20:05)
[2021-04-04] VITALS: BP 121/71; PULSE 72; RESP 12; TEMP 37.2; O2SAT 95
[2021-04-04 08:00] VITALS: BP 137/69; PULSE 89; RESP 18; TEMP 37.8; O2SAT 94
[2021-04-04] MEDS: polyethylene glycoL 3350 17 GM POWD.PACK PO (08:28)
[2021-04-04] MEDS: PANTOPRAZOLE 40 MG TABLET PO ×2 (08:29→20:02)
[2021-04-04] MEDS: DULoxetine HCL 30 MG CAPSULE.DR PO ×2 (08:29→17:41)
[2021-04-04] MEDS: SPIRONOLACTONE 25 MG TABLET PO (08:29)
[2021-04-04] MEDS: FENOFIBRATE NANOCRYSTALLIZED 145 MG TABLET 72.5 MG PO (08:30)
[2021-04-04] MEDS: lisinopriL 20 MG TABLET 40 MG PO (08:30)
[2021-04-04] MEDS: amLODIPine BESYLATE 5 MG TABLET PO (08:31)
[2021-04-04] MEDS: LORATADINE 10 MG TABLET PO (08:32)
[2021-04-04] MEDS: FERROUS SULFATE 324 MG TABLET PO (08:32)
[2021-04-04] MEDS: METOPROLOL TARTRATE 12.5 MG TABLET PO ×2 (08:33→17:43)
[2021-04-04] MEDS: HYDROXYCHLOROQUINE SULFATE 200 MG TABLET PO (08:33)
[2021-04-04] MEDS: TAMOXIFEN CITRATE (*CHEMO) 10 MG TABLET 20 MG PO (08:35)
[2021-04-04] MEDS: POTASSIUM/PHOSPHORUS/SODIUM 1.5 GM PACKET 1 PACKET PO ×2 (08:49→17:42)
[2021-04-04 16:00] VITALS: BP 125/75; PULSE 72; RESP 14; TEMP 36.4; O2SAT 90
[2021-04-04 17:43] VITALS: PULSE 68
[2021-04-04] MEDS: ACETAMINOPHEN 325 MG TABLET 650 MG PO (19:05)
[2021-04-04] MEDS: traZODone HCL 50 MG TABLET PO (22:04)
[2021-04-04] MEDS: ZOLPIDEM TARTRATE (*CRX) 2.5 MG TABLET PO (22:04)
[2021-04-05] VITALS: BP 120/79; PULSE 70; RESP 18; TEMP 37.2; O2SAT 99
[2021-04-05 05:15] LABS: Hematocrit 27.7 % (35.0-42.0); Hemoglobin 8.9 g/dL (11.7-13.8); Mean Corpuscular HGB Conc 32.1 g/dL (32.0-36.0); Mean Corpuscular Hemoglobin 30.1 pg (27.0-31.0); Mean Corpuscular Volume 93.6 fL (78.0-102.0); Mean Platelet Volume 8.6 fl (9.2-11.8); Platelet Count Result 442 K/mm3 (150-420); Red Blood Count 2.96 M/mm3 (4.20-5.40); Red Cell Distribution Width 15.5 % (11.6-14.4); White Blood Count 9.7 K/mm3 (4.8-10.8)
[2021-04-05 05:33] LABS: Anion Gap 11 mmol/L (8-16); Blood Urea Nitrogen 15 mg/dL (7-18); Calcium 9.7 mg/dL (8.5-10.1); Carbon Dioxide 24 mmol/L (21-32); Chloride 99 mmol/L (98-108); Estimated CRCL calculation 26 ml/min; Estimated Glomerular Filt Rate 50; Glucose 74 mg/dL (70-99); Osmolality Calculated 277 mOsm/kg (285-295); Potassium 4.6 mmol/L (3.5-5.1); Sodium 134 mmol/L (136-145)
[2021-04-05 08:00] VITALS: BP 115/78; PULSE 84; RESP 18; TEMP 37.1; O2SAT 96
[2021-04-05] MEDS: DULoxetine HCL 30 MG CAPSULE.DR PO ×2 (08:37→16:41)
[2021-04-05] MEDS: lisinopriL 20 MG TABLET 40 MG PO (08:38)
[2021-04-05] MEDS: FENOFIBRATE NANOCRYSTALLIZED 145 MG TABLET 72.5 MG PO (08:38)
[2021-04-05] MEDS: SPIRONOLACTONE 25 MG TABLET PO (08:39)
[2021-04-05] MEDS: PANTOPRAZOLE 40 MG TABLET PO ×2 (08:39→21:24)
[2021-04-05] MEDS: LORATADINE 10 MG TABLET PO (08:39)
[2021-04-05] MEDS: HYDROXYCHLOROQUINE SULFATE 200 MG TABLET PO (08:39)
[2021-04-05] MEDS: FERROUS SULFATE 324 MG TABLET PO (08:40)
[2021-04-05] MEDS: amLODIPine BESYLATE 5 MG TABLET PO (08:40)
[2021-04-05] MEDS: POTASSIUM/PHOSPHORUS/SODIUM 1.5 GM PACKET 1 PACKET PO ×2 (08:41→16:42)
[2021-04-05 08:42] VITALS: PULSE 84
[2021-04-05] MEDS: TAMOXIFEN CITRATE (*CHEMO) 10 MG TABLET 20 MG PO (08:42)
[2021-04-05] MEDS: METOPROLOL TARTRATE 12.5 MG TABLET PO ×2 (08:42→16:41)
[2021-04-05] MEDS: polyethylene glycoL 3350 17 GM POWD.PACK PO (08:45)
--- NOTE | 2021-04-05 14:21 | P.PNIM_ITS ---
Progress Note: A&P Assessment and Plan (1) Weakness: Code(s): R53.1 - Weakness Status: Acute Assessment and Plan: Exhibit tolerance during physical activity as evidenced by a normal fluctuation of vital signs during physical activity. ? Patient will be ability to perform required activities of daily living. ? Provide appropriate nutrition for healing and strength. ? Use appropriate to prevent falls. ? Continue physical therapy/occupational therapy. 04/05/2021 Continue with Physical Therapy and Occupational Therapy (2) Subdural hematoma: Code(s): S06.5X9A - Traumatic subdural hemorrhage with loss of consciousness of unspecified duration, initial encounter Status: Acute Assessment and Plan: * Patient not to start Eliquis until she follows up with the neurologist * Steve until 03/31 * Follow-up NSG Y in 4 weeks with a repeat head CT patient needs to call the clinic to set this up * CT indicated a small subdural hematoma alone anterior falx, with small frontal scalp and periorbital hematoma 04/05/2021 Continue as above (3) Compression fracture: Status: Acute Assessment and Plan: * Status post fall * Continue PT OT * According to outside hospital no indication for specialty consult at this time (4) Metastatic disease: Code(s): C79.9 - Secondary malignant neoplasm of unspecified site Status: Acute Assessment and Plan: 04/05/2021 CT shows the following per rad report: from 10/05/2020: IMPRESSION: 1. Improved pulmonary nodule in lingula status post radiation therapy. Worsened nodules in left upper lobe and right middle lobe. These findings are suspicious for metastatic disease. (5) History of endometrial cancer: Code(s): Z85.42 - Personal history of malignant neoplasm of other parts of uterus Status: Acute Assessment and Plan: * Status post RAJAN/BSO/omentectomy/LND and XRT * Follow-up with Dr. Paris * Continue tamoxifen (6) Dementia: Code(s): F03.90 - Unspecified dementia without behavioral disturbance Status: Acute Assessment and Plan: * Continue duloxetine * Continue sleep medication * Dr. Farnsworth 04/05/2021 Very confused today, see subjective (7) GERD (gastroesophageal reflux disease): Code(s): K21.9 - Gastro-esophageal reflux disease without esophagitis Status: Acute Assessment and Plan: * Continue PPI (8) Lupus: Code(s): M32.9 - Systemic lupus erythematosus, unspecified Status: Acute (9) CKD (chronic kidney disease): Code(s): N18.9 - Chronic kidney disease, unspecified Status: Acute Assessment and Plan: * Stable * Creatinine 0.74 BUN 12 * Avoid nephrotoxic agents * Renal dose all medication 04/05/2021 Cr slight increase 1.05 (10) Malignant neoplasm metastatic to lung: Code(s): C78.00 - Secondary malignant neoplasm of unspecified lung Status: Acute Assessment and Plan: * Follow-up with Dr. Paris * Completed radiation to the left upper and middle lobe nodule 11/15 * Continue tamoxifen (11) UTI (urinary tract infection): Code(s): N39.0 - Urinary tract infection, site not specified Status: Acute Assessment and Plan: * UA culture with the growth of E. coli on 03/24 * cefepime completed (12) Pressure ulcer: Code(s): L89.90 - Pressure ulcer of unspecified site, unspecified stage Status: Acute Assessment and Plan: * Sacral area * Open to air * Will consult wound care on Friday * Continue use of Mepi
--- NOTE | 2021-04-05 14:21 | PM.IMPN ---
Progress Note: A&P Assessment and Plan (1) Weakness: Code(s): R53.1 - Weakness Status: Acute Assessment and Plan: Exhibit tolerance during physical activity as evidenced by a normal fluctuation of vital signs during physical activity. ? Patient will be ability to perform required activities of daily living. ? Provide appropriate nutrition for healing and strength. ? Use appropriate to prevent falls. ? Continue physical therapy/occupational therapy. 04/05/2021 Continue with Physical Therapy and Occupational Therapy (2) Subdural hematoma: Code(s): S06.5X9A - Traumatic subdural hemorrhage with loss of consciousness of unspecified duration, initial encounter Status: Acute Assessment and Plan: Patient not to start Eliquis until she follows up with the neurologist Steve until 03/31 Follow-up NSG Y in 4 weeks with a repeat head CT patient needs to call the clinic to set this up CT indicated a small subdural hematoma alone anterior falx, with small frontal scalp and periorbital hematoma 04/05/2021 Continue as above (3) Compression fracture: Status: Acute Assessment and Plan: Status post fall Continue PT OT According to outside hospital no indication for specialty consult at this time (4) Metastatic disease: Code(s): C79.9 - Secondary malignant neoplasm of unspecified site Status: Acute Assessment and Plan: 04/05/2021 CT shows the following per rad report: from 10/05/2020: IMPRESSION: 1. Improved pulmonary nodule in lingula status post radiation therapy. Worsened nodules in left upper lobe and right middle lobe. These findings are suspicious for metastatic disease. (5) History of endometrial cancer: Code(s): Z85.42 - Personal history of malignant neoplasm of other parts of uterus Status: Acute Assessment and Plan: Status post RAJAN/BSO/omentectomy/LND and XRT Follow-up with Dr. Paris Continue tamoxifen (6) Dementia: Code(s): F03.90 - Unspecified dementia without behavioral disturbance Status: Acute Assessment and Plan: Continue duloxetine Continue sleep medication Dr. Farnsworth 04/05/2021 Very confused today, see subjective (7) GERD (gastroesophageal reflux disease): Code(s): K21.9 - Gastro-esophageal reflux disease without esophagitis Status: Acute Assessment and Plan: Continue PPI (8) Lupus: Code(s): M32.9 - Systemic lupus erythematosus, unspecified Status: Acute (9) CKD (chronic kidney disease): Code(s): N18.9 - Chronic kidney disease, unspecified Status: Acute Assessment and Plan: Stable Creatinine 0.74 BUN 12 Avoid nephrotoxic agents Renal dose all medication 04/05/2021 Cr slight increase 1.05 (10) Malignant neoplasm metastatic to lung: Code(s): C78.00 - Secondary malignant neoplasm of unspecified lung Status: Acute Assessment and Plan: Follow-up with Dr. Paris Completed radiation to the left upper and middle lobe nodule 11/15 Continue tamoxifen (11) UTI (urinary tract infection): Code(s): N39.0 - Urinary tract infection, site not specified Status: Acute Assessment and Plan: UA culture with the growth of E. coli on 03/24 cefepime completed (12) Pressure ulcer: Code(s): L89.90 - Pressure ulcer of unspecified site, unspecified stage Status: Acute Assessment and Plan: Sacral area Open to air Will consult wound care on Friday Continue use of Mepilex (13) Bacteremia: Code(s): R78.81 - Bacteremia Status: Acute Assessment and Plan: Blood culture 03/24 with the growth of E. coli Since the pain 03/25- 03/28 Bactrim started continue for 14 days (14) HTN (hypertension): Code(s): I10 - Essential (primary) hypertension Status: Acute Assessment and Plan: Continue amlodipine metoprolol and fenofibrate Vital signs as ordered Will adjust medicati
[2021-04-05] MEDS: hydrOXYzine HCL 12.5 MG TABLET PO (15:05)
[2021-04-05 16:30] VITALS: BP 119/67; PULSE 74; RESP 16; TEMP 36.9; O2SAT 96
[2021-04-05 16:41] VITALS: PULSE 74
--- NOTE | 2021-04-05 19:49 | PC.NURSE ---
Pt ambulated to bedside commode and then to bed. Pt relieved some gas, but did not defecate or void. Pt did not perform well and verbalized fear of falling. Pt was assisted with a gait belt and 2 RNs including this real estate underwriter. Once pt was brought and positioned in bed her anxiety subsided and stated she was comfortable.
[2021-04-05] MEDS: ZOLPIDEM TARTRATE (*CRX) 2.5 MG TABLET PO (21:24)
[2021-04-05] MEDS: traZODone HCL 50 MG TABLET PO (21:24)
[2021-04-06] VITALS: BP 124/66; PULSE 75; RESP 22; TEMP 36.6; O2SAT 94
[2021-04-06] MEDS: ALENDRONATE SODIUM 70 MG TABLET PO (06:38)
[2021-04-06 08:00] VITALS: BP 146/78; PULSE 83; RESP 16; TEMP 36.8; O2SAT 95
[2021-04-06] MEDS: polyethylene glycoL 3350 17 GM POWD.PACK PO (08:38)
[2021-04-06] MEDS: POTASSIUM/PHOSPHORUS/SODIUM 1.5 GM PACKET 1 PACKET PO ×2 (08:38→17:24)
[2021-04-06] MEDS: TAMOXIFEN CITRATE (*CHEMO) 10 MG TABLET 20 MG PO (08:38)
[2021-04-06] MEDS: DULoxetine HCL 30 MG CAPSULE.DR PO ×2 (08:39→17:25)
[2021-04-06] MEDS: HYDROXYCHLOROQUINE SULFATE 200 MG TABLET PO (08:39)
[2021-04-06] MEDS: FERROUS SULFATE 324 MG TABLET PO (08:40)
[2021-04-06] MEDS: SPIRONOLACTONE 25 MG TABLET PO (08:41)
[2021-04-06] MEDS: lisinopriL 20 MG TABLET 40 MG PO (08:41)
[2021-04-06] MEDS: PANTOPRAZOLE 40 MG TABLET PO ×2 (08:41→21:58)
[2021-04-06] MEDS: amLODIPine BESYLATE 5 MG TABLET PO (08:41)
[2021-04-06] MEDS: FENOFIBRATE NANOCRYSTALLIZED 145 MG TABLET 72.5 MG PO (08:42)
[2021-04-06 08:43] VITALS: PULSE 83
[2021-04-06] MEDS: METOPROLOL TARTRATE 12.5 MG TABLET PO ×2 (08:43→17:25)
[2021-04-06] MEDS: LORATADINE 10 MG TABLET PO (08:43)
[2021-04-06] MEDS: ACETAMINOPHEN 325 MG TABLET 650 MG PO (11:30)
[2021-04-06 16:35] VITALS: BP 100/60; PULSE 76; RESP 16; TEMP 36.7; O2SAT 93
[2021-04-06 17:25] VITALS: PULSE 76
[2021-04-06] MEDS: traZODone HCL 50 MG TABLET PO (21:58)
[2021-04-06] MEDS: ZOLPIDEM TARTRATE (*CRX) 2.5 MG TABLET PO (23:01)
[2021-04-07] VITALS: BP 121/84; PULSE 85; RESP 18; TEMP 36.4; O2SAT 99
[2021-04-07 08:00] VITALS: BP 137/82; PULSE 89; RESP 16; TEMP 36.8; O2SAT 100
[2021-04-07] MEDS: SPIRONOLACTONE 25 MG TABLET PO (09:24)
[2021-04-07] MEDS: TAMOXIFEN CITRATE (*CHEMO) 10 MG TABLET 20 MG PO (09:25)
[2021-04-07] MEDS: POTASSIUM/PHOSPHORUS/SODIUM 1.5 GM PACKET 1 PACKET PO ×2 (09:25→16:44)
[2021-04-07] MEDS: lisinopriL 20 MG TABLET 40 MG PO (09:26)
[2021-04-07] MEDS: DULoxetine HCL 30 MG CAPSULE.DR PO ×2 (09:26→16:44)
[2021-04-07] MEDS: FENOFIBRATE NANOCRYSTALLIZED 145 MG TABLET 72.5 MG PO (09:26)
[2021-04-07 09:27] VITALS: PULSE 70
[2021-04-07] MEDS: HYDROXYCHLOROQUINE SULFATE 200 MG TABLET PO (09:27)
[2021-04-07] MEDS: polyethylene glycoL 3350 17 GM POWD.PACK PO (09:27)
[2021-04-07] MEDS: FERROUS SULFATE 324 MG TABLET PO (09:27)
[2021-04-07] MEDS: PANTOPRAZOLE 40 MG TABLET PO ×2 (09:27→20:23)
[2021-04-07] MEDS: LORATADINE 10 MG TABLET PO (09:27)
[2021-04-07] MEDS: amLODIPine BESYLATE 5 MG TABLET PO (09:27)
[2021-04-07] MEDS: METOPROLOL TARTRATE 12.5 MG TABLET PO ×2 (09:27→16:44)
[2021-04-07 16:00] VITALS: BP 121/63; PULSE 67; RESP 20; TEMP 36.6; O2SAT 96
[2021-04-07 16:44] VITALS: PULSE 67
[2021-04-07] MEDS: traZODone HCL 50 MG TABLET PO (20:22)
[2021-04-07] MEDS: ZOLPIDEM TARTRATE (*CRX) 2.5 MG TABLET PO (21:25)
[2021-04-07 23:49] VITALS: BP 141/79; PULSE 82; RESP 20; TEMP 36.1; O2SAT 93
[2021-04-08 08:00] VITALS: BP 131/75; PULSE 90; RESP 16; TEMP 36.7; O2SAT 97
[2021-04-08] MEDS: POTASSIUM/PHOSPHORUS/SODIUM 1.5 GM PACKET 1 PACKET PO ×2 (09:19→17:05)
[2021-04-08] MEDS: FENOFIBRATE NANOCRYSTALLIZED 145 MG TABLET 72.5 MG PO (09:20)
[2021-04-08] MEDS: DULoxetine HCL 30 MG CAPSULE.DR PO ×2 (09:20→17:04)
[2021-04-08] MEDS: PANTOPRAZOLE 40 MG TABLET PO ×2 (09:20→20:57)
[2021-04-08] MEDS: FERROUS SULFATE 324 MG TABLET PO (09:20)
[2021-04-08] MEDS: LORATADINE 10 MG TABLET PO (09:20)
[2021-04-08] MEDS: HYDROXYCHLOROQUINE SULFATE 200 MG TABLET PO (09:20)
[2021-04-08] MEDS: amLODIPine BESYLATE 5 MG TABLET PO (09:20)
[2021-04-08] MEDS: SPIRONOLACTONE 25 MG TABLET PO (09:20)
[2021-04-08] MEDS: TAMOXIFEN CITRATE (*CHEMO) 10 MG TABLET 20 MG PO (09:20)
[2021-04-08] MEDS: lisinopriL 20 MG TABLET 40 MG PO (09:20)
[2021-04-08 09:35] VITALS: PULSE 90
[2021-04-08] MEDS: METOPROLOL TARTRATE 12.5 MG TABLET PO ×2 (09:35→17:05)
[2021-04-08 16:00] VITALS: BP 116/72; PULSE 76; RESP 18; TEMP 36.9; O2SAT 99
[2021-04-08 17:05] VITALS: PULSE 79
[2021-04-08] MEDS: traZODone HCL 50 MG TABLET PO (20:57)
[2021-04-08] MEDS: ZOLPIDEM TARTRATE (*CRX) 2.5 MG TABLET PO (21:00)
[2021-04-09] VITALS: BP 123/74; PULSE 78; RESP 20; TEMP 36.3; O2SAT 98
[2021-04-09 08:00] VITALS: BP 119/76; PULSE 80; RESP 18; TEMP 36.9; O2SAT 97
[2021-04-09] MEDS: DULoxetine HCL 30 MG CAPSULE.DR PO ×2 (09:08→17:25)
[2021-04-09] MEDS: FERROUS SULFATE 324 MG TABLET PO (09:08)
[2021-04-09] MEDS: HYDROXYCHLOROQUINE SULFATE 200 MG TABLET PO (09:08)
[2021-04-09] MEDS: POTASSIUM/PHOSPHORUS/SODIUM 1.5 GM PACKET 1 PACKET PO ×2 (09:08→17:26)
[2021-04-09] MEDS: PANTOPRAZOLE 40 MG TABLET PO ×2 (09:08→21:01)
[2021-04-09] MEDS: amLODIPine BESYLATE 5 MG TABLET PO (09:08)
[2021-04-09] MEDS: TAMOXIFEN CITRATE (*CHEMO) 10 MG TABLET 20 MG PO (09:08)
[2021-04-09 09:09] VITALS: PULSE 80
[2021-04-09] MEDS: FENOFIBRATE NANOCRYSTALLIZED 145 MG TABLET 72.5 MG PO (09:09)
[2021-04-09] MEDS: lisinopriL 20 MG TABLET 40 MG PO (09:09)
[2021-04-09] MEDS: SPIRONOLACTONE 25 MG TABLET PO (09:09)
[2021-04-09] MEDS: LORATADINE 10 MG TABLET PO (09:09)
[2021-04-09] MEDS: METOPROLOL TARTRATE 12.5 MG TABLET PO ×2 (09:09→18:26)
[2021-04-09 16:00] VITALS: BP 110/70; PULSE 83; RESP 20; TEMP 36.7; O2SAT 100
--- NOTE | 2021-04-09 17:05 | PCPTNOTE ---
Attempted sit to stand with patient max assist x 1 but not able to follow commands or stand upright. Discussed with pt's status with therapy due to cognitive level. Also spoke with Diane with clinical social work aide waiting for approval to memory care. Attempt again tomorrow with funcational transfers
[2021-04-09 18:26] VITALS: PULSE 80
--- NOTE | 2021-04-09 19:10 | PC.NURSE ---
Completed change of shift report. Patient was sitting in the recliner, visiting with her . Patient appeared to be confused. She enjoyed visiting with the nurse. Patient stated that she did not need anything at this time.
[2021-04-09] MEDS: traZODone HCL 50 MG TABLET PO (21:01)
[2021-04-09] MEDS: ZOLPIDEM TARTRATE (*CRX) 2.5 MG TABLET PO (21:02)
--- NOTE | 2021-04-09 23:15 | PC.NURSE ---
Completed patient rounding. Patient is sleeping comfortably in bed, with no signs of pain or discomfort.
[2021-04-10] VITALS: BP 124/68; PULSE 66; RESP 18; TEMP 36.6; O2SAT 95
--- NOTE | 2021-04-10 02:12 | PC.NURSE ---
Completed patient rounding. Patient is sleeping comfortably in bed, with no signs of pain or discomfort.
[2021-04-10 08:00] VITALS: BP 132/73; PULSE 73; RESP 18; TEMP 36.6; O2SAT 98
[2021-04-10] MEDS: lisinopriL 20 MG TABLET 40 MG PO (08:37)
[2021-04-10] MEDS: amLODIPine BESYLATE 5 MG TABLET PO (08:37)
[2021-04-10] MEDS: LORATADINE 10 MG TABLET PO (08:38)
[2021-04-10] MEDS: PANTOPRAZOLE 40 MG TABLET PO ×2 (08:38→20:58)
[2021-04-10] MEDS: FERROUS SULFATE 324 MG TABLET PO (08:38)
[2021-04-10] MEDS: SPIRONOLACTONE 25 MG TABLET PO (08:38)
[2021-04-10] MEDS: FENOFIBRATE NANOCRYSTALLIZED 145 MG TABLET 72.5 MG PO (08:38)
[2021-04-10] MEDS: DULoxetine HCL 30 MG CAPSULE.DR PO ×2 (08:39→17:11)
[2021-04-10] MEDS: POTASSIUM/PHOSPHORUS/SODIUM 1.5 GM PACKET 1 PACKET PO ×2 (08:39→17:10)
[2021-04-10] MEDS: TAMOXIFEN CITRATE (*CHEMO) 10 MG TABLET 20 MG PO (08:42)
[2021-04-10] MEDS: HYDROXYCHLOROQUINE SULFATE 200 MG TABLET PO (08:44)
[2021-04-10 08:59] VITALS: PULSE 73
[2021-04-10] MEDS: METOPROLOL TARTRATE 12.5 MG TABLET PO ×2 (08:59→17:11)
[2021-04-10 16:00] VITALS: BP 122/79; PULSE 111; RESP 18; TEMP 37.3; O2SAT 98
[2021-04-10 17:11] VITALS: PULSE 111
[2021-04-10] MEDS: traZODone HCL 50 MG TABLET PO (20:58)
[2021-04-10] MEDS: ZOLPIDEM TARTRATE (*CRX) 2.5 MG TABLET PO (21:00)
[2021-04-11] VITALS: BP 134/78; PULSE 74; RESP 18; TEMP 36.9; O2SAT 100
[2021-04-11 05:34] LABS: Hematocrit 27.7 % (35.0-42.0); Hemoglobin 9.4 g/dL (11.7-13.8); Mean Corpuscular HGB Conc 33.9 g/dL (32.0-36.0); Mean Corpuscular Hemoglobin 29.8 pg (27.0-31.0); Mean Corpuscular Volume 87.9 fL (78.0-102.0); Mean Platelet Volume 8.5 fl (9.2-11.8); Platelet Count Result 371 K/mm3 (150-420); Red Blood Count 3.15 M/mm3 (4.20-5.40); Red Cell Distribution Width 14.7 % (11.6-14.4); White Blood Count 7.1 K/mm3 (4.8-10.8)
[2021-04-11 05:44] LABS: Anion Gap 10 mmol/L (8-16); Blood Urea Nitrogen 14 mg/dL (7-18); Carbon Dioxide 22 mmol/L (21-32); Chloride 98 mmol/L (98-108); Estimated CRCL calculation 30 ml/min; Estimated Glomerular Filt Rate 60; Glucose 81 mg/dL (70-99); Osmolality Calculated 269 mOsm/kg (285-295); Potassium 4.5 mmol/L (3.5-5.1); Sodium 130 mmol/L (136-145)
[2021-04-11 08:00] VITALS: BP 147/71; PULSE 76; RESP 16; TEMP 36.4; O2SAT 96
[2021-04-11] MEDS: amLODIPine BESYLATE 5 MG TABLET PO (08:36)
[2021-04-11] MEDS: SPIRONOLACTONE 25 MG TABLET PO (08:37)
[2021-04-11] MEDS: PANTOPRAZOLE 40 MG TABLET PO ×2 (08:37→21:54)
[2021-04-11] MEDS: lisinopriL 20 MG TABLET 40 MG PO (08:37)
[2021-04-11] MEDS: DULoxetine HCL 30 MG CAPSULE.DR PO ×2 (08:37→17:34)
[2021-04-11] MEDS: HYDROXYCHLOROQUINE SULFATE 200 MG TABLET PO (08:37)
[2021-04-11] MEDS: FERROUS SULFATE 324 MG TABLET PO (08:37)
[2021-04-11] MEDS: LORATADINE 10 MG TABLET PO (08:37)
[2021-04-11] MEDS: TAMOXIFEN CITRATE (*CHEMO) 10 MG TABLET 20 MG PO (08:38)
[2021-04-11] MEDS: POTASSIUM/PHOSPHORUS/SODIUM 1.5 GM PACKET 1 PACKET PO ×2 (08:39→17:32)
[2021-04-11] MEDS: FENOFIBRATE NANOCRYSTALLIZED 145 MG TABLET 72.5 MG PO (08:40)
[2021-04-11 08:41] VITALS: PULSE 83
[2021-04-11] MEDS: METOPROLOL TARTRATE 12.5 MG TABLET PO ×2 (08:41→17:34)
[2021-04-11 13:38] LABS: SARS-CoV-2 Ag Negative (Negative)
[2021-04-11] MEDS: hydrOXYzine HCL 12.5 MG TABLET PO (15:48)
[2021-04-11 16:00] VITALS: BP 142/75; PULSE 81; RESP 18; TEMP 36.8; O2SAT 98
[2021-04-11] MEDS: ACETAMINOPHEN 325 MG TABLET 650 MG PO (17:33)
[2021-04-11 17:34] VITALS: PULSE 81
[2021-04-11] MEDS: traZODone HCL 50 MG TABLET PO (21:55)
[2021-04-11] MEDS: ZOLPIDEM TARTRATE (*CRX) 2.5 MG TABLET PO (21:56)
[2021-04-11 23:39] VITALS: BP 129/65; PULSE 67; RESP 16; TEMP 36.4; O2SAT 96
--- NOTE | 2021-04-12 07:25 | PC.NURSE ---
[facility]ral [facility] care, barrier cream provided.
[2021-04-12 08:00] VITALS: BP 116/71; PULSE 81; RESP 16; TEMP 36.3; O2SAT 95
[2021-04-12 08:49] LABS: Add Urine Microscopic? YES; Appearance Urine Clear (Clear); Bilirubin Urine Negative (Negative); Blood Urine Negative (Negative); Color Urine Yellow (Yellow); Glucose Urine UA Negative (Negative); Ketones Urine Negative (Negative); Leukocyte Esterase Ur Negative LEU/UL (Negative); Nitrate Urine Negative (Negative); Protein Urine Negative (Negative); Specific Grav Ur >= 1.030 (1.010-1.020)
[2021-04-12 08:55] LABS: Bacteria Urine Trace /hpf; RBC Urine None seen /hpf (0-2); WBC Urine None seen /hpf (0-3)
[2021-04-12 08:56] LABS: Mucus Urine Rare /lpf
[2021-04-12] MEDS: POTASSIUM/PHOSPHORUS/SODIUM 1.5 GM PACKET 1 PACKET PO (09:13)
[2021-04-12] MEDS: TAMOXIFEN CITRATE (*CHEMO) 10 MG TABLET 20 MG PO (09:13)
[2021-04-12] MEDS: DULoxetine HCL 30 MG CAPSULE.DR PO (09:14)
[2021-04-12] MEDS: SPIRONOLACTONE 25 MG TABLET PO (09:14)
[2021-04-12] MEDS: PANTOPRAZOLE 40 MG TABLET PO (09:14)
[2021-04-12] MEDS: FERROUS SULFATE 324 MG TABLET PO (09:14)
[2021-04-12] MEDS: lisinopriL 20 MG TABLET 40 MG PO (09:14)
[2021-04-12] MEDS: LORATADINE 10 MG TABLET PO (09:14)
[2021-04-12] MEDS: HYDROXYCHLOROQUINE SULFATE 200 MG TABLET PO (09:14)
[2021-04-12] MEDS: amLODIPine BESYLATE 5 MG TABLET PO (09:14)
[2021-04-12 09:15] VITALS: PULSE 76
[2021-04-12] MEDS: ACETAMINOPHEN 325 MG TABLET 650 MG PO (09:15)
[2021-04-12] MEDS: METOPROLOL TARTRATE 12.5 MG TABLET PO (09:15)
[2021-04-12] MEDS: FENOFIBRATE NANOCRYSTALLIZED 145 MG TABLET 72.5 MG PO (09:15)
--- NOTE | 2021-04-12 10:09 | P.DS_ITS ---
DS: Admitting Diagnosis Discharge Date 04/12/2021 Admitting Diagnosis Weakness and debility DS: Discharge Diagnosis Discharge Diagnosis (1) Weakness: Code(s): R53.1 - Weakness Status: Acute Assessment and Plan: * ? Exhibit tolerance during physical activity as evidenced by a normal fl uctuation of vital signs during physical activity. ? Patient will be ability to perform required activities of daily living. ? Provide appropriate nutrition for healing and strength. ? Use appropriate to prevent falls. ? Continue physical therapy/occupational therapy. Discharge Patient will discharge to SNF (2) Subdural hematoma: Code(s): S06.5X9A - Traumatic subdural hemorrhage with loss of consciousness of unspecified duration, initial encounter Status: Acute Assessment and Plan: * Patient not to start Eliquis until she follows up with the neurologist * Steve until 03/31 * Follow-up NSG Y in 4 weeks with a repeat head CT patient needs to call the clinic to set this up * CT indicated a small subdural hematoma alone anterior falx, with small frontal scalp and periorbital hematoma (3) Compression fracture: Status: Acute Assessment and Plan: * Status post fall * Continue PT OT * According to outside hospital no indication for specialty consult at this time (4) Metastatic disease: Code(s): C79.9 - Secondary malignant neoplasm of unspecified site Status: Acute Assessment and Plan: * (5) History of endometrial cancer: Code(s): Z85.42 - Personal history of malignant neoplasm of other parts of uterus Status: Acute Assessment and Plan: * Status post RAJAN/BSO/omentectomy/LND and XRT * Follow-up with Dr. Paris * Continue tamoxifen (6) Dementia: Code(s): F03.90 - Unspecified dementia without behavioral disturbance Status: Acute Assessment and Plan: * Continue duloxetine * Continue sleep medication (7) GERD (gastroesophageal reflux disease): Code(s): K21.9 - Gastro-esophageal reflux disease without esophagitis Status: Acute Assessment and Plan: * Continue PPI (8) Lupus: Code(s): M32.9 - Systemic lupus erythematosus, unspecified Status: Acute (9) CKD (chronic kidney disease): Code(s): N18.9 - Chronic kidney disease, unspecified Status: Acute Assessment and Plan: * Stable * Creatinine 0.74 BUN 12 on discharge cr 0.89 bun 14 * Avoid nephrotoxic agents * Renal dose all medication (10) Malignant neoplasm metastatic to lung: Code(s): C78.00 - Secondary malignant neoplasm of unspecified lung Status: Acute Assessment and Plan: * Follow-up with Dr. Paris * Completed radiation to the left upper and middle lobe nodule 11/15 * Continue tamoxifen (11) UTI (urinary tract infection): Code(s): N39.0 - Urinary tract infection, site not specified Status: Acute Assessment and Plan: * UA culture with the growth of E. coli on 03/24 * cefepime completed (12) Pressure ulcer: Code(s): L89.90 - Pressure ulcer of unspecified site, unspecified stage Status: Acute Assessment and Plan: * Sacral area * Open to air * Will consult wound care on Friday * Continue use of Mepilex (13) Bacteremia: Code(s): R78.81 - Bacteremia Status: Acute Assessment and Plan: * Blood culture 03/24 with the growth of E. coli * Since the pain 03/25- 03/28 * Bactrim started continue for 14 days, completed
--- NOTE | 2021-04-12 10:09 | PM.DS ---
DS: Admitting Diagnosis Discharge Date 04/12/2021 Admitting Diagnosis Weakness and debility DS: Discharge Diagnosis Discharge Diagnosis (1) Weakness: Code(s): R53.1 - Weakness Status: Acute Assessment and Plan: ? Exhibit tolerance during physical activity as evidenced by a normal fluctuation of vital signs during physical activity. ? Patient will be ability to perform required activities of daily living. ? Provide appropriate nutrition for healing and strength. ? Use appropriate to prevent falls. ? Continue physical therapy/occupational therapy. Discharge Patient will discharge to SNF (2) Subdural hematoma: Code(s): S06.5X9A - Traumatic subdural hemorrhage with loss of consciousness of unspecified duration, initial encounter Status: Acute Assessment and Plan: Patient not to start Eliquis until she follows up with the neurologist Steve until 03/31 Follow-up NSG Y in 4 weeks with a repeat head CT patient needs to call the clinic to set this up CT indicated a small subdural hematoma alone anterior falx, with small frontal scalp and periorbital hematoma (3) Compression fracture: Status: Acute Assessment and Plan: Status post fall Continue PT OT According to outside hospital no indication for specialty consult at this time (4) Metastatic disease: Code(s): C79.9 - Secondary malignant neoplasm of unspecified site Status: Acute Assessment and Plan: (5) History of endometrial cancer: Code(s): Z85.42 - Personal history of malignant neoplasm of other parts of uterus Status: Acute Assessment and Plan: Status post RAJAN/BSO/omentectomy/LND and XRT Follow-up with Dr. Paris Continue tamoxifen (6) Dementia: Code(s): F03.90 - Unspecified dementia without behavioral disturbance Status: Acute Assessment and Plan: Continue duloxetine Continue sleep medication (7) GERD (gastroesophageal reflux disease): Code(s): K21.9 - Gastro-esophageal reflux disease without esophagitis Status: Acute Assessment and Plan: Continue PPI (8) Lupus: Code(s): M32.9 - Systemic lupus erythematosus, unspecified Status: Acute (9) CKD (chronic kidney disease): Code(s): N18.9 - Chronic kidney disease, unspecified Status: Acute Assessment and Plan: Stable Creatinine 0.74 BUN 12 on discharge cr 0.89 bun 14 Avoid nephrotoxic agents Renal dose all medication (10) Malignant neoplasm metastatic to lung: Code(s): C78.00 - Secondary malignant neoplasm of unspecified lung Status: Acute Assessment and Plan: Follow-up with Dr. Paris Completed radiation to the left upper and middle lobe nodule 11/15 Continue tamoxifen (11) UTI (urinary tract infection): Code(s): N39.0 - Urinary tract infection, site not specified Status: Acute Assessment and Plan: UA culture with the growth of E. coli on 03/24 cefepime completed (12) Pressure ulcer: Code(s): L89.90 - Pressure ulcer of unspecified site, unspecified stage Status: Acute Assessment and Plan: Sacral area Open to air Will consult wound care on Friday Continue use of Mepilex (13) Bacteremia: Code(s): R78.81 - Bacteremia Status: Acute Assessment and Plan: Blood culture 03/24 with the growth of E. coli Since the pain 03/25- 03/28 Bactrim started continue for 14 days, completed (14) HTN (hypertension): Code(s): I10 - Essential (primary) hypertension Status: Acute Assessment and Plan: Continue amlodipine metoprolol and fenofibrate Vital signs as ordered Will adjust medication as needed DS: Summary Hospital Course Reason for hospitalization: Rehab and debility Hospital Course: this is a 85-year-old female who presented to [facility] after a mechanical fall. Patient sustained a subdural hematoma and a T12 thai
--- NOTE | 2021-04-12 13:30 | PC.NURSE ---
Discharge instructions reviewed with family, patient transferred to wheelchair and assisted into private vehicle. Report called to Marie at [facility].
--- NOTE | 2021-04-17 13:30 | PC.NURSE ---
USP nurse states she received and understood the discharge instructions.
== END 2021-04-12 13:30 | DRG 949 ==
PROVIDERS: Nurse Practitioner; Nurse Practitioner Family; Admitting Provider Internal Medicine Critical Care Medicine; PCP Internal Medicine; Visit Provider Internal Medicine Critical Care Medicine
DX: S06.5X9D Traumatic subdural hemorrhage with loss of consciousness of unspecified duration, subsequent encounter (principal); C78.00 Secondary malignant neoplasm of unspecified lung; N39.0 Urinary tract infection, site not specified; R53.1 Weakness; S22.080D Wedge compression fracture of T11-T12 vertebra, subsequent encounter for fracture with routine healing; S00.83XD Contusion of other part of head, subsequent encounter; W19.XXXD Unspecified fall, subsequent encounter; L89.151 Pressure ulcer of sacral region, stage 1; B96.20 Unspecified Escherichia coli [E. coli] as the cause of diseases classified elsewhere; F03.90 Unspecified dementia, unspecified severity, without behavioral disturbance, psychotic disturbance, mood disturbance, and anxiety; I12.9 Hypertensive chronic kidney disease with stage 1 through stage 4 chronic kidney disease, or unspecified chronic kidney disease; J44.9 Chronic obstructive pulmonary disease, unspecified; K21.9 Gastro-esophageal reflux disease without esophagitis; M32.9 Systemic lupus erythematosus, unspecified; N18.9 Chronic kidney disease, unspecified; Z90.710 Acquired absence of both cervix and uterus; Z85.42 Personal history of malignant neoplasm of other parts of uterus; Z20.822 Contact with and (suspected) exposure to COVID-19
CPT/HCPCS: 36415; 80048; 80053; 81001; 83735; 85027; 87426; 92507; 92523; 97110; 97161; 97165; 97530; 97535; A9270; C9803